=== PATIENT | male | born 1940 | race Caucasian/White ===

== ENCOUNTER 2018-06-18 18:34 | Emergency (ER) | payer OTHER, MEDICARE ==
[2018-06-18 19:01] VITALS: BMI 32.3
[2018-06-18 19:12] VITALS: PULSE 54; TEMP 98.5
--- NOTE | 2018-06-18 19:14 | PDOC ---
History of Present Illness - General History Source: Patient Exam Limitations: No Limitations <Donald Schultz - Last Filed: 06/18/18 19:01> - History of Present Illness Initial Comments: 06/18/18 19:20 The patient is an 78 year old male with history of hypertension, CAD s/p CABG, who presents to the ED complaining of 4 days of altered mental status. States he has had difficulty walking and feels slightly more confused than his baseline. He denies any headache, blurred vision, numbness or tingling. He denies chest pain or shortness of breath. He denies nausea, vomiting, or diaphoresis. He does report he had a fall with nasal injury approximately 1 month ago which was complicated by a subsequent LUE DVT and cellulitis, now resolved. <Edel Lara - Last Filed: 06/18/18 19:49> - General Chief Complaint: CVA/TIA Stated Complaint: MY GAIT IS OFF Time Seen by Provider: 06/18/18 19:00 Past History - Suicide/Smoking/Psychosocial Hx Smoking History: Unknown if ever smoked Hx Alcohol Use: No Drug/Substance Use Hx: No <Donald Schultz - Last Filed: 06/18/18 19:01> <Edel Lara - Last Filed: 06/18/18 19:49> - Past Medical History Allergies/Adverse Reactions: Allergies Allergy/AdvReac Type Severity Reaction Status Date / Time levofloxacin [From Levaquin] Allergy Verified 06/18/18 18:36 Penicillins Allergy Verified 06/18/18 18:36 Home Medications: Ambulatory Orders Aspirin [ASA -] 81 mg PO DAILY 06/18/18 Budesonide/Formeterol Fumarate [SYMBICORT 160/4.5mcg -] 1 inh PO DAILY 06/18/18 Levothyroxine Sodium [Synthroid] 137 mcg PO DAILY 06/18/18 Losartan Potassium [Cozaar] 0 mg PO DAILY 06/18/18 Pravastatin Sodium [Pravachol (Nf)] 40 mg PO HS 06/18/18 Review of Systems - Review of Systems Able to Perform ROS?: Yes Comments:: 06/18/18 19:35 GENERAL/CONSTITUTIONAL: No fever or chills. No weakness. HEAD, EYES, EARS, NOSE AND THROAT: No change in vision. No ear pain or discharge. No sore throat. CARDIOVASCULAR: No chest pain or shortness of breath. RESPIRATORY: No cough, wheezing, or hemoptysis. GASTROINTESTINAL: No nausea, vomiting, diarrhea or constipation. GENITOURINARY: No dysuria, frequency, or change in urination. MUSCULOSKELETAL: No joint or muscle swelling or pain. No neck or back pain. SKIN: No rash NEUROLOGIC: +Increased confusion. +Difficulty with gait. No headache, vertigo, loss of consciousness. ENDOCRINE: No increased thirst. No abnormal weight change. HEMATOLOGIC/LYMPHATIC: No anemia, easy bleeding, or history of blood clots. ALLERGIC/IMMUNOLOGIC: No hives or skin allergy. <Edel Lara - Last Filed: 06/18/18 19:49> *Physical Exam - Vital Signs Last Vital Signs Temp Pulse Resp BP Pulse Ox 0/0 06/18/18 18:35 <Donald Schultz - Last Filed: 06/18/18 19:01> - Vital Signs Last Vital Signs Temp Pulse Resp BP Pulse Ox 98.5 F 54 L 17 155/83 97 06/18/18 18:35 06/18/18 18:35 06/18/18 18:35 06/18/18 18:35 06/18/18 18:35 - Physical Exam Comments: 06/18/18 19:15 GENERAL: Awake, alert, and fully oriented, in no acute distress HEAD: No signs of trauma EYES: PERRLA, EOMI, sclera anicteric, conjunctiva clear ENT: Auricles normal inspection, hearing grossly normal, nares patent, oropharynx clear without exudates. Moist mucosa NECK: Normal ROM, supple, no lymphadenopathy, JVD, or masses LUNGS: Breath sounds equal, clear to auscultation bilaterally. No wheezes, and no crackles HEART: Regular rate and rhythm, normal S1 and S2, no murmurs, rubs or gallops ABDOMEN: Soft, nontender, normoactive bowel sounds. No guarding, no rebound. No masses EXTREMITIES: Normal range of motion, no edema. No clubbing or cyanosis. No cords, erythema, or tenderness NEUROLOGICAL: Cranial nerves II through XII grossly intact. 5/5 strength in upper and lower extremities. Sensation intact throughout. +Rhomberg test. + Abnormal finger nose finger on the left side. +Left sided heel baptiste abnormality. +Dysmetria. No pronator drift. SKIN: Warm, Dry, normal turgor, no rashes or lesions noted. <Edel Lara - Last Filed: 06/18/18 19:49> NIH Stroke Scale - Last Known Well Date/Time & Onset Date Last Known Well: 06/15/18 - Initial Evaluation Level of consciousness: Alert Ask patient the month and their age: Answers both correctly Ask patient to open & close eyes; make fist and let go: Obeys both correctly Best gaze (horizontal eye movement): Normal Visual field testing: No visual field loss Facial paresis (Show teeth/raise eyebrows/close eyes tight): Normal symmetrical movement Motor Function: Left Arm: Normal Motor Function: Right Arm: Normal (extends arm 90 (or 45) degrees for 10 seconds without drift Motor Function: Left Leg: Normal (extends leg 30 degrees for 5 seconds without drift) Motor Function: Right Leg: Normal (extends leg 30 degrees for 5 seconds without drift) Limb Ataxia: Present in two limbs Sensory(Use pinprick test arms,legs,trunk,face/side to side): Normal Best language (Describe picture, name items, read sentences): No Aphasia Dysarthria (read several words): Normal articulation Extinction and Inattention: No abnormality - Total Score NIH Stroke Scale Score: 2 <Donald Schultz - Last Filed: 06/18/18 19:01> tPA Exclusion Checklist 0-3hr - Time Elapsed Date last known well: 06/15/18 - Thrombolytic Therapy Candidate Is the patient eligible for Thrombolytic Therapy?: No - Ineligibility reason(s) Reasons No tPA given: Outside of window - delayed arrival <Donald Schultz - Last Filed: 06/18/18 19:01> Critical Care Time/MDM Note - Medical Decision Making Note: 06/18/18 19:04 A portion of this note was written by my scribe, under my supervision. 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 The patient noted that he was feeling off gait when ambulating and noted that his thought process was "slower " than usual. He denies any chest pain or shortness of breath. Denies recent illnesses, fevers, chills, cough. The patient did recently have a fall in April 2018 where he was seen in [facility] and he had fractured his nose. The course was complicated by a superficial venous thrombosis in LUE with infection that resolved with heat packs and antibiotics. He has been well since then until this event. The patient has been evaluated and has left sided dysmetria, rhomberg positive, abnormal left sided heel to baptiste which is concerning for cerebellar stroke. The patient is already on baby aspirin. Denies chest pain. Differential includes NPH, metabolic, cardiac, infectious. Will need head CT, labs, UA, EKG. I advised the patient strongly that he should have an inpatient MRI for the stroke, in addition to echo and carotid dopplers and neuro consultation. However , the patient has felt strongly that he would like an outpatient followup on Wednesday (in 1.5 days). The patient states that he will think about it and get back to me. Patient signed out to Dr. Navarro (night physician) for further management and disposition. <Donald Schultz - Last Filed: 06/18/18 19:01> - Medical Decision Making Note: 06/18/18 19:20 Documentation prepared by Edel Lara, acting as certified medical aide for Donald Schultz MD. <Edel Lara - Last Filed: 06/18/18 19:49> Discharge Disposition <Donald Schultz - Last Filed: 06/18/18 19:01> <Edel Lara - Last Filed: 06/18/18 19:49> - Referrals Referrals: Khanh Sutton [Primary Care Provider] - - Patient Instructions - Post Discharge Activity
[2018-06-18 19:48] LABS: BASO % 0.5 % (0-2.0); EOS % 1.7 % (0-4.5); HEMATOCRIT 39.3 % (35.4-49); HEMOGLOBIN 13.3 GM/dl (11.7-16.9); LYMPH % 34.2 % (8-40); MCH 31.5 pg (25.7-33.7); MEAN CELL VOLUME 92.6 fl (80-96); MEAN PLT VOLUME 8.4 fl (7.5-11.1); NEUT % 52.6 % (42.8-82.8); PLATELET COUNT 227 K/MM3 (134-434); RBC 4.24 M/mm3 (4.00-5.60); RDW 13.1 % (11.9-15.9); WHITE BLOOD COUNT 7.3 K/mm3 (4.0-10.8)
[2018-06-18 19:51] LABS: ACTIVATED PTT 30.4 SECONDS (25.2-36.5)
[2018-06-18 19:55] LABS: INR 1.11 (0.82-1.09); PROTHROMBIN TIME (PATIENT) 12.4 SEC (10.2-13.0)
[2018-06-18 20:05] LABS: ALBUMIN 4.1 g/dl (3.5-5.0); ALK PHOS 46 U/L (32-92); ANION GAP 3 (8-16); BILIRUBIN,TOTAL 0.5 mg/dl (0.2-1.0); BLOOD UREA NITROGEN 28 mg/dl (7-18); CALCIUM 9.2 mg/dl (8.4-10.2); CHLORIDE 107 mmol/L (98-107); CO2 26 mmol/L (22-28); GLUCOSE,RANDOM 81 mg/dl (74-106); POTASSIUM 4.4 mmol/L (3.5-5.1); SGOT/AST 31 U/L (10-42); SGPT/ALT 30 U/L (10-40); SODIUM 136 mmol/L (136-145); TOT PROT 6.5 g/dl (6.4-8.3)
--- NOTE | 2018-06-18 20:15 | PDOC ---
*Physical Exam - Vital Signs Last Vital Signs Temp Pulse Resp BP Pulse Ox 98.5 F 54 L 17 155/83 97 06/18/18 18:35 06/18/18 18:35 06/18/18 18:35 06/18/18 18:35 06/18/18 18:35 ED Treatment Course - LABORATORY CBC & Chemistry Diagram: 06/18/18 19:28 06/18/18 19:28 - ADDITIONAL ORDERS Additional order review: Laboratory Results 06/18/18 19:28 PT with INR 12.4 INR 1.11 PTT (Actin FS) 30.4 06/18/18 19:28 RBC 4.24 MCV 92.6 MCHC 34.0 RDW 13.1 MPV 8.4 Neutrophils % 52.6 Lymphocytes % 34.2 Monocytes % 11.0 H Eosinophils % 1.7 Basophils % 0.5 Medical Decision Making - Medical Decision Making 06/18/18 20:11 I received pt on signout. He fell 3 weeks ago ad hit his right forehead with nasal bridge injury. Pt was seen at [facility], and he receievd Head CT that was normal. He has been having headaches since that time. 4 days ago he was having difficulty walking. Gait instability. Yoday he has a 2.4 cm subacute bleed in the frontal right area of the brain: MASTER GIBBS There is mass effect on the right frontal lobe, but no significant midline shift. The appearance favors an epidural hematoma over a subdural, but both could have this appearance. Individualized dose optimization techniques were used for this CT. THIS DOCUMENT HAS BEEN ELECTRONICALLY SIGNED Pt will go to [facility] Neurosurgery Dr. Og is aware; he will be taken by ALS transport to the ER at [facility]. Our [place]sur[place]. *DC/Admit/Observation/Transfer Diagnosis at time of Disposition: Brain bleed - Discharge Dispostion Disposition: TRANSFER ACUTE CARE/OTHER HOSP Condition at time of disposition: Guarded - Referrals Referrals: Khanh Sutton [Primary Care Provider] - - Patient Instructions - Post Discharge Activity - Transfer to Acute Care Facility Receiving Facility: [facility].
[2018-06-18 20:22] VITALS: BP 170/95
[2018-06-18 20:49] LABS: PH,URINE 5.5 (4.5-8); URINE APPEARANCE Clear; URINE BILIRUBIN Negative (NEGATIVE); URINE COLOR Yellow; URINE GLUCOSE (UA) Negative (NEGATIVE); URINE KETONE Negative (NEGATIVE); URINE LEUK ESTERASE Negative (NEGATIVE); URINE NITRITE Negative (NEGATIVE); URINE PROTEIN Negative (NEGATIVE); URINE UROBILINOGEN 0.2 (0.2-1.0)
--- NOTE | 2018-06-19 08:36 | EKG ---
Test Reason : Blood Pressure : / mmHG Vent. Rate : 052 BPM Atrial Rate : 163 BPM P-R Int : 000 ms QRS Dur : 162 ms QT Int : 490 ms P-R-T Axes : 000 -03 008 degrees QTc Int : 455 ms MARKED SINUS BRADYCARDIA WITH 1ST DEGREE A-V BLOCK WITH PREMATURE VENTRICULAR OR ABERRANTLY CONDUCTED COMPLEXES RIGHT BUNDLE BRANCH BLOCK ABNORMAL ECG NO PREVIOUS ECGS AVAILABLE Confirmed by DRAGAN WASHINGTON, SIMONA ([id number]) on 06/19/2018 8:36:24 AM Referred By: MD LUNDBERG Confirmed By:SIMONA ARCHIBALD MD
== END 2018-06-18 21:53 | disposition short-term general hospital (02) ==
LOC: FER 18:34
DX: S06.360D Traumatic hemorrhage of cerebrum, unspecified, without loss of consciousness, subsequent encounter (principal); W19.XXXD Unspecified fall, subsequent encounter; I10 Essential (primary) hypertension; I25.10 Atherosclerotic heart disease of native coronary artery without angina pectoris; Z95.1 Presence of aortocoronary bypass graft; Z79.82 Long term (current) use of aspirin
CPT/HCPCS: 36415; 70450-TC; 71045-TC-FY; 80053; 81003; 84484; 85025; 85610; 85730; 87086; 93005; 99283-25